=== PATIENT | male | born 2000 | race Caucasian/White ===

== ENCOUNTER → 2020-06-15 | Outpatient (CLI) | payer BC | LOC: ZCOL.LAB 23:03 | DX: J06.9 Acute upper respiratory infection, unspecified (principal); Z20.828 Contact with and (suspected) exposure to other viral communicable diseases ==

== ENCOUNTER → 2020-07-21 | Outpatient (CLI) | payer BC | LOC: COL.RAD 08:38 | DX: K50.80 Crohn's disease of both small and large intestine without complications (principal); R91.8 Other nonspecific abnormal finding of lung field | CPT/HCPCS: Q9967 ==

== ENCOUNTER 2024-04-18 13:30 | Outpatient (CLI) | payer BC ==
[2024-04-18 14:20] LABS: HEMATOCRIT 40.8 % (42.0-52.0); HEMOGLOBIN 13.6 g/dl (13.5-18.0); MEAN CELL VOLUME 84 fl (80.0-100.0); MEAN CORPUSCULAR HEMOGLOBIN 28 pg (27-31); MEAN CORPUSCULAR HGB CONC 33 g/dl (33.0-37.0); MEAN PLATELET VOLUME 9.2 fl (7.4-10.4); PLATELET COUNT 340 K/mm3 (130-400); RED BLOOD COUNT 4.86 M/mm3 (4.20-5.60); REDCELL DISTRIBUTION WIDTH-CV 12.5 % (11.5-14.5)
[2024-04-18] MEDS ORDERED: Acetaminophen 325 MG TAB PO ONE (14:45)
[2024-04-18] MEDS ORDERED: NS Flush 10 ML SYRINGE PRN ICA (14:45)
[2024-04-18] MEDS ORDERED: diphenhydrAMINE 50 MG/ML 1 ML VIAL IV ONE (14:45)
[2024-04-18 15:00] VITALS: BP 145/62; PULSE 81; TEMP 97.8
[2024-04-18] MEDS ORDERED: PREDNISONE20 MG PO (16:18)
--- NOTE | 2024-04-18 16:18 | NUR ---
Pt discharged via ambulatory after infusion complete.
== END 2024-04-18 16:19 ==
LOC: EUO 13:30
PROVIDERS: Internal Medicine Gastroenterology
DX: K50.813 Crohn's disease of both small and large intestine with fistula (principal)
CPT/HCPCS: J1200; J2327; J7060